=== PATIENT | male | born 1965 | race Caucasian/White ===

== ENCOUNTER → 2018-12-29 | Outpatient (CLI) | payer BC | END | disposition home or self-care (01) | LOC: LABWHC1 16:03 | PROVIDERS: ATTEND Internal Medicine | DX: E11.9 Type 2 diabetes mellitus without complications (principal) | CPT/HCPCS: 36415; 84681 ==

== ENCOUNTER 2021-12-22 16:16 | Emergency (ER) | payer BC ==
[2021-12-22 17:11] VITALS: TEMP 98
[2021-12-22 17:35] LABS: Basophils % (A) 0 %; Eosinophils # (A) 0.3 k/uL (0-0.7); Eosinophils % (A) 4 %; HCT 53.9 % (39.0-53.0); HGB 16.7 gm/dL (13.0-17.5); Lymphocytes # (A) 1.4 k/uL (1.0-4.8); Lymphocytes % (A) 22 %; MCH 26.4 pg (25.0-35.0); MCV 85.3 fL (80.0-100.0); Mean Platelet Volume 7.3; Monocytes # (A) 0.4 k/uL (0-1.0); Monocytes % (A) 7 %; Neutrophils # (A) 4.1 k/uL (1.3-7.7); Neutrophils % (A) 64 %; Platelet Count 207 k/uL (150-450); RBC 6.32 m/uL (4.30-5.90); RDW 13.8 % (11.5-15.5); WBC 6.4 k/uL (3.8-10.6)
[2021-12-22 17:47] LABS: Partial Thromboplastin Time 24.8 sec (22.0-30.0); Prothrombin Time 10.6 sec (9.0-12.0)
[2021-12-22 17:48] LABS: ALT 30 U/L (4-49); AST 31 U/L (17-59); African American GFR (CKD) >90 (>60 ml/min/1.73 sqM); Albumin 4.7 g/dL (3.5-5.0); Alkaline Phosphatase 117 U/L (38-126); Anion Gap 11 mmol/L; Blood Urea Nitrogen 24 mg/dL (9-20); Calcium 9.7 mg/dL (8.4-10.2); Carbon Dioxide 26 mmol/L (22-30); Chloride 100 mmol/L (98-107); Glucose 142 mg/dL (74-99); Non-African American GFR(CKD) 80 (>60 ml/min/1.73 sqM); Potassium 4.3 mmol/L (3.5-5.1); Sodium 137 mmol/L (137-145); Total Bilirubin 0.6 mg/dL (0.2-1.3); Total Protein 7.5 g/dL (6.3-8.2)
--- NOTE | 2021-12-22 19:13 | XR ---
EXAMINATION TYPE: XR chest 2V DATE OF EXAM: 12/22/2021 6:07 PM COMPARISON: None TECHNIQUE: XR chest 2V Frontal and lateral views of the chest. CLINICAL INDICATION:Male, 56 years old with history of chest pain; FINDINGS: Lungs/Pleura: There is no evidence of pleural effusion, focal consolidation, or pneumothorax. Pulmonary vascularity: Unremarkable. Heart/mediastinum: Cardiomediastinal silhouette is unremarkable. Musculoskeletal: No acute osseous pathology. IMPRESSION: No acute cardiopulmonary disease/process.
--- NOTE | 2021-12-22 19:15 | XR ---
EXAMINATION TYPE: XR shoulder complete LT DATE OF EXAM: 12/22/2021 6:50 PM INDICATION: Patient age:Male; 56 years old; Reason for study: left shoulder pain; COMPARISON: None TECHNIQUE: The left shoulder was examined in AP, internally rotated and scapular Y projections. . FINDINGS: Osteophyte formation of the distal clavicle and acromion. No evidence of acute osseous pathology, susy nt dislocation, or soft tissue swelling. The remaining portions of the visualized chest are unremarka ble. IMPRESSION: 1. No acute osseous pathology. 2. Mild left acromioclavicular joint osteoarthrosis.
--- NOTE | 2021-12-22 19:47 | ED ---
General Adult HPI - General Chief complaint: Chest Pain Stated complaint: Needs EKG-Sent by PCP Time Seen by Provider: 12/22/21 18:30 Source: patient, RN notes reviewed, old records reviewed Mode of arrival: ambulatory Limitations: no limitations - History of Present Illness Initial comments: Patient is a 56-year-old male with past medical history remarkable for diabetes, hyperlipidemia presents he was Department complaining of left arm paresthesias. States it is worse with movement of his left shoulder. States it starts at his left anterior superior shoulder and radiates down his left arm. Has been present for 3-4 weeks. Saw his PCP today who instructed him to come to the emergency department for further evaluation and for EKG. Denies any chest pain. Denies any shortness of breath. Denies any abdominal pain, nausea and vomiting. Workup was started in triage. His no other acute complaints at this time. Does have chronic shoulder issues. Presents for further evaluation. - Related Data Allergies Allergy/AdvReac Type Severity Reaction Status Date / Time Penicillins Allergy Rash/Hives Verified 12/22/21 17:09 Review of Systems ROS Statement: Those systems with pertinent positive or pertinent negative responses have been documented in the HPI. Review of Systems: CONST: Denies fever EYES: Denies blurry vision ENT: Denies nasal congestion C/V: Denies Chest pain RESP: Denies shortness of breath GI: Denies abdominal pain : Denies dysuria SKIN: Denies rash. MSK: Denies joint pain. NEURO: Denies headache ROS Other: All systems not noted in ROS Statement are negative. Past Medical History Past Medical History: Diabetes Mellitus, Hyperlipidemia History of Any Multi-Drug Resistant Organisms: None Reported Past Surgical History: No Surgical Hx Reported Past Psychological History: No Psychological Hx Reported Smoking Status: Never smoker Past Alcohol Use History: None Reported Past Drug Use History: None Reported General Exam - General Exam Comments Initial Comments: General: Appears in no acute distress. HEAD: Normal with no signs of head trauma. EYES: PERRLA, EOMI, conjunctiva normal, no discharge. ENT: Hearing grossly intact, normal oropharynx. RESPIRATORY: Clear breath sounds bilaterally. No wheezes, rales, or rhonchi. C/V: Regular rate and rhythm. S1 and S2 auscultated, no edema, peripheral pulses 2+ and intact throughout ABD: Abd is soft, nontender, nondistended EXT: Normal range of motion, no obvious deformity. Paresthesias onset with point pressure applied at the left AC joint. SKIN: No rashes or lesions observed on exposed skin. NEURO: Alert and oriented 4. No focal strength deficits. Subjective paresthesias located in the left arm. Limitations: no limitations Course Vital Signs 12/22/21 12/22/21 12/22/21 17:09 18:48 19:57 Temperature 98 F 98 F Pulse Rate 63 68 66 Respiratory 16 16 18 Rate Blood Pressure 155/91 173/113 137/98 O2 Sat by Pulse 99 96 100 Oximetry Medical Decision Making - Medical Decision Making Based on the patient's presentation and physical exam, patient presents complaining of radiculopathy type paresthesias located in the left upper extremity. There is pinpoint tenderness at the left AC joint. Cardiac work up was obtained in triage, as well as an EKG at the request the PCP. EKG showed no signs of acute ischemia. Troponin was undetectable. Remainder the labs are unremarkable. Vital signs are within normal limits. Chest x-ray revealed no acute cardiopulmonary process. I discussed with the patient at length my concern for possible nerve compression located in the left shoulder. R ecommended a shoulder x-ray in addition to chest x-ray which he accepted. Declines analgesia at this time. Shoulder x-ray shows mild left AC joint osteoarthritis. Discussed the findings with him and his . I believe it is safe for discharge home with follow-up with orthopedics. He was in agreement this plan. Can use [id number] analgesia as needed for pain. May require further imaging such as MRI or ultrasound which we discussed. States he has an orthopedic surgeon that he can follow-up with. Declines referral. I instructed the patient to follow up with their PCP in the next 1-3 days. I explained that the patient should return to the emergency department if they experience any worsening symptoms. Strict return precautions were discussed with the patient. The patient expressed understanding of these instructions. I answered all questions that the patient had. The patient was discharged home in good condition with their prescriptions and follow up information. - Lab Data Result diagrams: 12/22/21 17:18 12/22/21 17:18 Lab Results 12/22/21 12/22/21 12/22/21 Range/Units 17:18 17:18 17:18 WBC 6.4 (3.8-10.6) k/uL RBC 6.32 H (4.30-5.90) m/uL Hgb 16.7 (13.0-17.5) gm/dL Hct 53.9 H (39.0-53.0) % MCV 85.3 (80.0-100.0) fL MCH 26.4 (25.0-35.0) pg MCHC 31.0 (31.0-37.0) g/dL RDW 13.8 (11.5-15.5) % Plt Count 207 (150-450) k/uL MPV 7.3 Neutrophils % 64 % Lymphocytes % 22 % Monocytes % 7 % Eosinophils % 4 % Basophils % 0 % Neutrophils # 4.1 (1.3-7.7) k/uL Lymphocytes # 1.4 (1.0-4.8) k/uL Monocytes # 0.4 (0-1.0) k/uL Eosinophils # 0.3 (0-0.7) k/uL Basophils # 0.0 (0-0.2) k/uL PT 10.6 (9.0-12.0) sec INR 1.0 (<1.2) APTT 24.8 (22.0-30.0) sec Sodium 137 (137-145) mmol/L Potassium 4.3 (3.5-5.1) mmol/L Chloride 100 (98-107) mmol/L Carbon Dioxide 26 (22-30) mmol/L Anion Gap 11 mmol/L BUN 24 H (9-20) mg/dL Creatinine 1.06 (0.66-1.25) mg/dL Est GFR (CKD-EPI)AfAm >90 (>60 ml/min/1.73 sqM) Est GFR (CKD-EPI)NonAf 80 (>60 ml/min/1.73 sqM) Glucose 142 H (74-99) mg/dL Calcium 9.7 (8.4-10.2) mg/dL Total Bilirubin 0.6 (0.2-1.3) mg/dL AST 31 (17-59) U/L ALT 30 (4-49) U/L Alkaline Phosphatase 117 (38-126) U/L Troponin I (0.000-0.034) ng/mL Total Protein 7.5 (6.3-8.2) g/dL Albumin 4.7 (3.5-5.0) g/dL 12/22/21 Range/Units 17:18 WBC (3.8-10.6) k/uL RBC (4.30-5.90) m/uL Hgb (13.0-17.5) gm/dL Hct (39.0-53.0) % MCV (80.0-100.0) fL MCH (25.0-35.0) pg MCHC (31.0-37.0) g/dL RDW (11.5-15.5) % Plt Count (150-450) k/uL MPV Neutrophils % % Lymphocytes % % Monocytes % % Eosinophils % % Basophils % % Neutrophils # (1.3-7.7) k/uL Lymphocytes # (1.0-4.8) k/uL Monocytes # (0-1.0) k/uL Eosinophils # (0-0.7) k/uL Basophils # (0-0.2) k/uL PT (9.0-12.0) sec INR (<1.2) APTT (22.0-30.0) sec Sodium (137-145) mmol/L Potassium (3.5-5.1) mmol/L Chloride (98-107) mmol/L Carbon Dioxide (22-30) mmol/L Anion Gap mmol/L BUN (9-20) mg/dL Creatinine (0.66-1.25) mg/dL Est GFR (CKD-EPI)AfAm (>60 ml/min/1.73 sqM) Est GFR (CKD-EPI)NonAf (>60 ml/min/1.73 sqM) Glucose (74-99) mg/dL Calcium (8.4-10.2) mg/dL Total Bilirubin (0.2-1.3) mg/dL AST (17-59) U/L ALT (4-49) U/L Alkaline Phosphatase (38-126) U/L Troponin I <0.012 (0.000-0.034) ng/mL Total Protein (6.3-8.2) g/dL Albumin (3.5-5.0) g/dL - EKG Data -: EKG Interpreted by Me EKG Comments: 12-lead Electrocardiogram Interpretation Note EKG was reviewed and interpreted by myself. 12-lead ECG performed at 1718 is interpreted by me as revealing normal sinus rhythm at a rate of 61 beats per minute. [place] is normal. AL interval is 185 ms, QRS duration is 106 ms, QTc is 402 ms.. There were no ST or T wave abnormalities to suggest myocardial ischemia or injury. R wave progression across the precordium was satisfactory. By my interpretation this EKG is non-diagnostic for acute ischemia. Disposition Clinical Impression: Arm paresthesia, left, AC joint pain Disposition: HOME SELF-CARE Condition: Good Instructions (If sedation given, give patient instructions): Paresthesia (ED) Is patient prescribed a controlled substance at d/c from ED?: No Referrals: Aga Vega MD [Primary Care Provider] - 1-2 days Time of Disposition: 19:30
[2021-12-22 19:58] VITALS: BP 137/98; PULSE 66; RESP 18
== END 2021-12-22 19:58 | disposition home or self-care (01) ==
LOC: EC 16:16
DX: R20.2 Paresthesia of skin (principal); M25.512 Pain in left shoulder; E11.9 Type 2 diabetes mellitus without complications; E78.5 Hyperlipidemia, unspecified; Z88.0 Allergy status to penicillin
CPT/HCPCS: 36415; 71046; 80053; 84484; 85025; 85610; 85730; 93005; 99284

== ENCOUNTER → 2024-03-22 | Outpatient (CLI) | payer BC ==
--- NOTE | 2024-03-22 20:35 | US ---
EXAMINATION TYPE: US carotid duplex BILAT DATE OF EXAM: 03/22/2024 COMPARISON: NONE CLINICAL INDICATION: Male, 59 years old with history of R42 DIZZINESS AND GIDDINESS; Dizziness for 2 weeks Additional History: R42* Dizziness TECHNIQUE: Grayscale, color Doppler and spectral Doppler evaluation of the bilateral carotid systems and vertebral arteries. Indirect Doppler criteria was utilized. FINDINGS: EXAM MEASUREMENTS: RIGHT: Peak Systolic Velocity (PSV) cm/sec ----- Right CCA: 95.5 ----- Right ICA: 81.2 ----- Right ECA: 100 ICA/CCA ratio: 0.85 RIGHT: End Diastole cm/sec ----- Right CCA: 20.1 ----- Right ICA: 32.9 ----- Right ECA: 11.5 LEFT: Peak Systolic Velocity (PSV) cm/sec ----- Left CCA: 90.1 ----- Left ICA: 76.2 ----- Left ECA: 79.9 ICA/CCA ratio: 0.85 LEFT: End Diastole cm/sec ----- Left CCA: 26.4 ----- Left ICA: 31.2 ----- Left ECA: 9.6 VERTEBRALS (direction of flow): Right Vertebral: Antegrade Left Vertebral: Antegrade Rhythm: Normal ANGIOGRAPHY TECHNOLOGIST NOTES: Minimal plaque bilateral bifurcations. No evidence of increased velocities Color Doppler imaging shows patency with blood flow throughout the carotid artery. Spectral waveforms are within normal limits. IMPRESSION: 1. Mild atheromatous plaquing without significant flow-limiting stenosis. Criteria for Assigning % of Stenosis / Diameter reduction (Estimation based on the indirect measurements of the internal carotid artery velocities (ICA PSV). 1. Normal (no stenosis)=ICA PSV < 125 cm/s: ratio < 2.0: ICA EDV<40 cm/s. 2. Less than 50% stenosis=ICA PSV < 125 cm/s: ratio < 2.0: ICA EDV<40 cm/s. 3. 50 to 69% stenosis=ICA PSV of 125 to 230 cm/s: ration 2.0 ? 4.0: ICA EDV 40-100 cm/s. 4. Greater than 70% stenosis to near occlusion= ICA PSV > 230 cm/s: ratio > 4.0: ICA EDV > 100 cm/s. 5. Near occlusion= ICA PSV velocities may be low or undetectable: variable ratio and ICA EDV. 6. Total occlusion=unable to detect flow. [facility], , 03/22/2024 8:33 PM
== END | disposition home or self-care (01) ==
LOC: RADUSWWP 06:50
PROVIDERS: ATTEND Internal Medicine
DX: I70.90 Unspecified atherosclerosis (principal); R42 Dizziness and giddiness
CPT/HCPCS: 93880

== ENCOUNTER 2024-05-01 18:24 | Observation (INO) | payer BC ==
[2024-05-01] MEDS: FAMOTIDINE 20 MG/2 ML VIAL IV STA (20:00)
[2024-05-01] MEDS: KETOROLAC 15 MG/ML 1 ML VIAL IVP STA (20:00)
[2024-05-01] MEDS: SODIUM CHLORIDE 0.9% 1,000 ML IV STA (20:01)
[2024-05-01 20:06] LABS: Basophils % (A) 0 %; Eosinophils # (A) 0.1 k/uL (0-0.7); Eosinophils % (A) 2 %; HCT 50.5 % (39.0-53.0); Lymphocytes # (A) 1.5 k/uL (1.0-4.8); Lymphocytes % (A) 19 %; MCH 26.8 pg (25.0-35.0); MCHC 31.7 g/dL (31.0-37.0); MCV 84.7 fL (80.0-100.0); Mean Platelet Volume 6.8; Monocytes # (A) 0.4 k/uL (0-1.0); Monocytes % (A) 5 %; Neutrophils # (A) 5.5 k/uL (1.3-7.7); Neutrophils % (A) 72 %; Platelet Count 228 k/uL (150-450); RBC 5.96 m/uL (4.30-5.90); WBC 7.6 k/uL (3.8-10.6)
[2024-05-01 20:06] LABS: Appearance,Urine Clear (Clear); Bilirubin,Urine Negative (Negative); Blood,Urine Negative (Negative); Color,Urine Colorless; Glucose,Urine (UA) 4+ (Negative); Ketones,Urine Negative (Negative); Leukocyte Esterase,Urine Negative (Negative); Nitrite,Urine Negative (Negative); Protein,Urine Negative (Negative); Specific Gravity,Urine 1.038 (1.001-1.035); Urobilinogen,Urine <2.0 mg/dL (<2.0)
[2024-05-01 20:38] LABS: ALT 29 U/L (4-49); AST 27 U/L (17-59); African American GFR (CKD) >90 (>60 ml/min/1.73 sqM); Albumin 4.7 g/dL (3.5-5.0); Alkaline Phosphatase 94 U/L (38-126); Amylase 71 U/L (30-110); Anion Gap 6 mmol/L; Blood Urea Nitrogen 21 mg/dL (9-20); Carbon Dioxide 31 mmol/L (22-30); Chloride 101 mmol/L (98-107); Glucose 149 mg/dL (74-99); Lipase 172 U/L (23-300); Non-African American GFR(CKD) >90 (>60 ml/min/1.73 sqM); Potassium 4.2 mmol/L (3.5-5.1); Sodium 138 mmol/L (137-145); Total Bilirubin 0.6 mg/dL (0.2-1.3)
--- NOTE | 2024-05-01 21:50 | CT ---
EXAMINATION TYPE: CT abdomen pelvis w con DATE OF EXAM: 05/01/2024 9:40 PM COMPARISON: None available. CLINICAL INDICATION: Male, 59 years old with history of abdominal pain; Lower abdomen pain [id number]. Wit hin the last day it moved to RT side and became more significant. TECHNIQUE: Axial CT abdomen pelvis w con;Sagittal and coronal reformats were created on a separate w orkstation. Contrast used:100 ml mL of Isovue 300 with IV Contrast, (none if empty) Oral contrast used: without Oral Contrast (none if empty) CT DLP: 816 mGycm, Automated exposure control for dose reduction was used. FINDINGS: LOWER CHEST: Unremarkable ABDOMEN LIVER: Unremarkable GALLBLADDER AND BILE DUCTS: Unremarkable. PANCREAS: Unremarkable. SPLEEN: Unremarkable. ADRENAL GLANDS: Unremarkable. KIDNEYS AND URETERS: No evidence of hydronephrosis or renal calculus. The ureters are unremarkable. PELVIS BLADDER: No evidence for wall thickening or mass given limitations of exam. REPRODUCTIVE: Unremarkable. ABDOMEN & PELVIS STOMACH AND BOWEL: Stomach and duodenum are unremarkable. Scattered diverticula are noted throughout the colon. No evidence of bowel obstruction. Appendix is gas-filled proximally and along the distal t ip although the midportion is mildly dilated measuring 7 mm in diameter. No associated adjacent mesen teric inflammation. PERITONEUM/RETROPERITONEUM: No evidence of pneumoperitoneum or free fluid. VASCULATURE: No evidence of aortic aneurysm. MUSCULOSKELETAL: No acute osseous abnormalities LYMPH NODES: No gross evidence for lymphadenopathy. SOFT TISSUE/ABDOMINAL WALL: Unremarkable IMPRESSION: No acute abnormality in the abdomen/pelvis. [facility], , 05/01/2024 9:47 PM
[2024-05-01] MEDS ORDERED: NALOXONE 0.4 MG/ML 1 ML VIAL IV PRN (22:35)
[2024-05-01] MEDS ORDERED: MORPHINE SULFATE 4 MG/ML SYRINGE IV PRN (22:35)
--- NOTE | 2024-05-01 22:40 | ED ---
Abdominal Pain HPI - General Chief Complaint: Abdominal Pain Stated Complaint: R side/abd pain Time Seen by Provider: 05/01/24 19:06 Source: patient Mode of arrival: ambulatory Limitations: no limitations - History of Present Illness Initial Comments: 59-year-old male presenting with chief complaint of abdominal pain. Patient reports that a few weeks ago he had sudden onset sharp and burning periumbilical pain with radiation to the right lower quadrant. States that this was a nagging pain throughout the day that did not stop him from doing his ADLs. Eventually the pain went away. The pain is since returned and worsened over the last night. Is becoming progressively more difficult to ignore throughout the day. Pain is improved with laying down and worse when he is up and moving. No nausea or vomiting. Some constipation, no diarrhea. No fever. - Related Data Home Medications Medication Instructions Recorded Confirmed Empagliflozin [Jardiance] 25 mg PO DAILY 05/01/24 05/01/24 Evolocumab [Repatha Sureclick] 140 mg SQ Q14D 05/01/24 05/01/24 Rosuvastatin Calcium [Crestor] 40 mg PO DAILY 05/01/24 05/01/24 Semaglutide [Rybelsus] 14 mg PO DAILY 05/01/24 05/01/24 lisinopriL [Zestril] 5 mg PO DAILY 05/01/24 05/01/24 Allergies Allergy/AdvReac Type Severity Reaction Status Date / Time Penicillins Allergy Rash/Hives Verified 05/01/24 20:47 Review of Systems ROS Statement: Those systems with pertinent positive or pertinent negative responses have been documented in the HPI. ROS Other: All systems not noted in ROS Statement are negative. Past Medical History Past Medical History: Diabetes Mellitus, Hyperlipidemia History of Any Multi-Drug Resistant Organisms: None Reported Past Surgical History: No Surgical Hx Reported Past Psychological History: No Psychological Hx Reported Smoking Status: Never smoker Past Alcohol Use History: None Reported Past Drug Use History: None Reported General Exam Limitations: no limitations General appearance: alert, in no apparent distress Head exam: Present: atraumatic, normocephalic, normal inspection Eye exam: Present: normal appearance, EOMI Neck exam: Present: normal inspection. Absent: meningismus Respiratory exam: Present: normal lung sounds bilaterally. Absent: respiratory distress, wheezes, rales, rhonchi, stridor Cardiovascular Exam: Present: regular rate, normal rhythm, normal heart sounds. Absent: systolic murmur, diastolic murmur, rubs, gallop, clicks GI/Abdominal exam: Present: soft. Absent: distended, tenderness, guarding, rebound, rigid Neurological exam: Present: alert, oriented X3 Psychiatric exam: Present: normal affect, normal mood Skin exam: Present: warm, dry Course Vital Signs 05/01/24 05/01/24 18:56 20:51 Temperature 98.4 F Pulse Rate 78 64 Respiratory 18 16 Rate Blood Pressure 136/75 148/84 O2 Sat by Pulse 99 98 Oximetry Medical Decision Making - Medical Decision Making Was pt. sent in by a medical professional or institution (, PA, BUSINESS DEPARTMENT CHAIR, urgent care, hospital, or long-term...) When possible be specific @ -No Did you speak to anyone other than the patient for history (EMS, parent, family, police, friend...)? What history was obtained from this source @ - Did you review nursing and triage notes (agree or disagree)? Why? @ -I reviewed and agree with nursing and triage notes Were old charts reviewed (outside hosp., previous admission, EMS record, old EKG, old radiological studies, urgent care reports/EKG's, long-term records)? Report findings @ -No old charts were reviewed Differential Diagnosis (chest pain, altered mental status, abdominal pain women, abdominal pain men, vaginal bleeding, weakness, fever, dyspnea, syncope, headache, dizziness, GI bleed, back pain, seizure, CVA, palpatations, mental health, musculoskeletal)? @ -MDM Differential Abdominal Pain Men: Appendicitis, cholecystitis, diverticulosis, ischemic bowel, pancreatitis, hepatitis, UTI, gastroenteritis, AAA, incarcerated hernia, bowel obstruction, constipation, inflammatory bowel, hepatitis, peptic ulcer disease, splenic infarction, perforated viscus, testicular torsion... This is not meant to be an all-inclusive list EKG interpreted by me (3pts min.). @ -As above X-rays interpreted by me (1pt min.). @ -None done CT interpreted by me (1pt min.). @ -CT shows appendix is gas-filled proximally and along the distal tip although the midportion is mildly dilated measuring 7 mm in diameter. No associated adjacent mesenteric inflammation. U/S interpreted by me (1pt. min.). @ -None done What testing was considered but not performed or refused? (CT, X-rays, U/S, labs)? Why? @ -None What meds were considered but not given or refused? Why? @ -None Did you discuss the management of the patient with other professionals (professionals i.e. , PA, BUSINESS DEPARTMENT CHAIR, lab, RT, psych nurse, social media coordinator, roller staker, teacher, training and development officer, pillowcase folder)? Give summary @ -I spoke with general surgeon on-call Dr. Ocampo. He advised starting the patient on Flagyl and Rocephin, IV fluids, and making him n.p.o. He will reevaluate the patient in the morning Was smoking cessation discussed for >3mins.? @ -No Was critical care preformed (if so, how long)? @ -No Were there social determinants of health that impacted care today? How? (Homelessness, low income, unemployed, alcoholism, drug addiction, transportation, low edu. Level, literacy, decrease access to med. care, senior care, rehab)? @ -No Was there de-escalation of care discussed even if they declined (Discuss DNR or withdrawal of care, Hospice)? DNR status @ -No What co-morbidities impacted this encounter? (DM, HTN, Smoking, COPD, CAD, Cancer, CVA, ARF, Chemo, Hep., AIDS, mental health diagnosis, sleep apnea, morbid obesity)? @ -None Was patient admitted / discharged? Hospital course, mention meds given and route, prescriptions, significant lab abnormalities, going to OR and other pertinent info. @ -59-year-old male presenting with chief complaint of right lower quadrant pain. History and physical examination are conducted. No leukocytosis or anemia. No infection seen on UA. CT states no acute process. The appendix is gas-filled and mildly dilated. Given the patient's pain I discussed these results with surgeon on-call Dr. Ocampo. Dr. Ocampo advised starting Rocephin and Flagyl, IV fluids, making the patient n.p.o. He will then reevaluate the patient in the morning and determine the potential need for appendectomy. Patient is educated on today's findings and plan. He is agreeable with this plan. I discussed this case with my attending Dr. Merida. Undiagnosed new problem with uncertain prognosis? @ -No Drug Therapy requiring intensive monitoring for toxicity (Heparin, Nitro, Insulin, Cardizem)? @ -No Were any procedures done? @ -No Diagnosis/symptom? @ -Abdominal pain, rule out appendicitis Acute, or Chronic, or Acute on Chronic? @ -Acute Uncomplicated (without systemic symptoms) or Complicated (systemic symptoms)? @ -complicated Side effects of treatment? @ -No Exacerbation, Progression, or Severe Exacerbation? @ -No Poses a threat to life or bodily function? How? (Chest pain, [place], [place], pneumonia, PE, COPD, DKA, ARF, appy, cholecystitis, CVA, Diverticulitis, Homicidal, Suicidal, threat to staff... and all critical care pts) @ -Potential - Lab Data Result diagrams: 05/01/24 19:38 05/01/24 19:38 Lab Results 05/01/24 05/01/24 05/01/24 Range/Units 19:38 19:38 19:38 WBC 7.6 (3.8-10.6) k/uL RBC 5.96 H (4.30-5.90) m/uL Hgb 16.0 (13.0-17.5) gm/dL Hct 50.5 (39.0-53.0) % MCV 84.7 (80.0-100.0) fL MCH 26.8 (25.0-35.0) pg MCHC 31.7 (31.0-37.0) g/dL RDW 14.0 (11.5-15.5) % Plt Count 228 (150-450) k/uL MPV 6.8 Neutrophils % 72 % Lymphocytes % 19 % Monocytes % 5 % Eosinophils % 2 % Basophils % 0 % Neutrophils # 5.5 (1.3-7.7) k/uL Lymphocytes # 1.5 (1.0-4.8) k/uL Monocytes # 0.4 (0-1.0) k/uL Eosinophils # 0.1 (0-0.7) k/uL Basophils # 0.0 (0-0.2) k/uL Sodium 138 (137-145) mmol/L Potassium 4.2 (3.5-5.1) mmol/L Chloride 101 (98-107) mmol/L Carbon Dioxide 31 H (22-30) mmol/L Anion Gap 6 mmol/L BUN 21 H (9-20) mg/dL Creatinine 0.92 (0.66-1.25) mg/dL Est GFR (CKD-EPI)AfAm >90 (>60 ml/min/1.73 sqM) Est GFR (CKD-EPI)NonAf >90 (>60 ml/min/1.73 sqM) Glucose 149 H (74-99) mg/dL Plasma Lactic Acid Maxime 1.1 (0.7-2.0) mmol/L Calcium 10.0 (8.4-10.2) mg/dL Total Bilirubin 0.6 (0.2-1.3) mg/dL AST 27 (17-59) U/L ALT 29 (4-49) U/L Alkaline Phosphatase 94 (38-126) U/L Total Protein 7.0 (6.3-8.2) g/dL Albumin 4.7 (3.5-5.0) g/dL Amylase 71 (30-110) U/L Lipase 172 (23-300) U/L Urine Color Urine Appearance (Clear) Urine pH (5.0-8.0) Ur Specific [place] (1.001-1.035) Urine Protein (Negative) Urine Glucose (UA) (Negative) Urine Ketones (Negative) Urine Blood (Negative) Urine Nitrite (Negative) Urine Bilirubin (Negative) Urine Urobilinogen (<2.0) mg/dL Ur Leukocyte Esterase (Negative) 05/01/24 Range/Units 19:50 WBC (3.8-10.6) k/uL RBC (4.30-5.90) m/uL Hgb (13.0-17.5) gm/dL Hct (39.0-53.0) % MCV (80.0-100.0) fL MCH (25.0-35.0) pg MCHC (31.0-37.0) g/dL RDW (11.5-15.5) % Plt Count (150-450) k/uL MPV Neutrophils % % Lymphocytes % % Monocytes % % Eosinophils % % Basophils % % Neutrophils # (1.3-7.7) k/uL Lymphocytes # (1.0-4.8) k/uL Monocytes # (0-1.0) k/uL Eosinophils # (0-0.7) k/uL Basophils # (0-0.2) k/uL Sodium (137-145) mmol/L Potassium (3.5-5.1) mmol/L Chloride (98-107) mmol/L Carbon Dioxide (22-30) mmol/L Anion Gap mmol/L BUN (9-20) mg/dL Creatinine (0.66-1.25) mg/dL Est GFR (CKD-EPI)AfAm (>60 ml/min/1.73 sqM) Est GFR (CKD-EPI)NonAf (>60 ml/min/1.73 sqM) Glucose (74-99) mg/dL Plasma Lactic Acid Maxime (0.7-2.0) mmol/L Calcium (8.4-10.2) mg/dL Total Bilirubin (0.2-1.3) mg/dL AST (17-59) U/L ALT (4-49) U/L Alkaline Phosphatase (38-126) U/L Total Protein (6.3-8.2) g/dL Albumin (3.5-5.0) g/dL Amylase (30-110) U/L Lipase (23-300) U/L Urine Color Colorless Urine Appearance Clear (Clear) Urine pH 6.0 (5.0-8.0) Ur Specific [place] 1.038 H (1.001-1.035) Urine Protein Negative (Negative) Urine Glucose (UA) 4+ H (Negative) Urine Ketones Negative (Negative) Urine Blood Negative (Negative) Urine Nitrite Negative (Negative) Urine Bilirubin Negative (Negative) Urine Urobilinogen <2.0 (<2.0) mg/dL Ur Leukocyte Esterase Negative (Negative) Disposition Clinical Impression: Abdominal pain Disposition: ADMITTED IP TO THIS HOSP Condition: Fair Time of Disposition: 22:40
[2024-05-01] MEDS: SODIUM CHLORIDE 0.9% 1,000 ML IV SCH (22:53)
[2024-05-01] MEDS: metroNIDAZOLE-NS PMX 500 MG in SALINE 1 100ML.BAG IVPB STA (22:54)
[2024-05-02] MEDS: metroNIDAZOLE-NS PMX 500 MG in SALINE 1 100ML.BAG IVPB SCH (08:41)
[2024-05-02] MEDS: ONDANSETRON 4 MG/2 ML VIAL IVP PRN (12:26)
[2024-05-02] MEDS: DEXAMETHASONE SOD PHOSPHATE 4 MG/ML 1 ML VIAL IVP STA (12:27)
--- NOTE | 2024-05-02 12:28 | P.GSHP ---
History of Present Illness H&P Date: 05/02/24 CHIEF COMPLAINT: Abdominal pain HISTORY OF PRESENT ILLNESS: This is a 59-year-old male who presents the hospital with complaints of abdominal pain. Patient reported his pain started about 3 days ago. Pain initially started in the umbilicus region and went down to the right lower quadrant. He reports the pain is about a 3 out of 10. Patient had a CAT scan abdomen completed that reported no acute abnormality in the abdomen and pelvis. But did note appendix was mildly dilated and gas-filled. Patient denies any prior abdominal surgeries. PAST MEDICAL HISTORY: See below PAST SURGICAL HISTORY: See below MEDICATIONS: See below ALLERGIES: See below SOCIAL HISTORY: No illicit drug use. REVIEW OF SYSTEMS: CONSTITUTIONAL: Denies fever or chills. HEENT: Denies blurred vision, vision changes, or eye pain. Denies hemoptysis CARDIOVASCULAR: Denies chest pain or pressure. RESPIRATORY: No shortness of breath. GASTROINTESTINAL: See HPI for pertinent findings HEMATOLOGIC: Denies bleeding disorders. GENITOURINARY: Denies any blood in urine or increased urinary frequency. SKIN: Denies pruitis. Denies rash. PHYSICAL EXAM: VITAL SIGNS: Reviewed GENERAL: Well-developed in no acute distress. HEENT: No sclera icterus. Extraocular movements grossly intact. Moist buccal mucosa. Head is atraumatic, normocephalic. No nasal drainage. ABDOMEN: Soft. Nondistended. Tenderness with palpation to right lower quadrant. NEUROLOGIC: Alert and oriented. Cranial nerves II through XII grossly intact. LABORATORY DATA: WBC 7.6 Hgb 16 platelets 228 Sodium 138 potassium 4.2 creatinine 0.92 IMAGING: CT scan abdomen pelvis reports no acute abnormality in the abdomen and pelvis. Does report appendix mildly dilated 7 mm and gas-filled. ASSESSMENT: 1. Acute appendicitis PLAN: -Patient scheduled for laparoscopic appendectomy today with Dr. Alvarez -Keep patient n.p.o. -Continue antibiotics -Continue IV fluids -Continue pain management Physician Nurse Staff Industrial note has been reviewed by physician. Signing provider agrees with the documented findings, assessment, and plan of care. Attestation Patient seen and examined at bedside. Presented with chief complaint of abdominal pain starting at the umbilicus and migrating to the right lower quadrant. With this pain presentation he presented to the emergency department. He is found to have a mildly dilated appendix with continued right lower quadrant pain. Based on these findings, patient was offered antibiotic route of treatment with concern for early appendicitis and possibility of laparoscopic appendectomy. Patient is concerned of worsening of the appendicitis and has opted for appendectomy. This is reasonable based on patient's current clinical presentation and dilated appendix finding. We will plan for laparoscopic appendectomy. Risks, benefits and alternatives were provided. All questions answered. Lonny Alvarez DO Past Medical History Past Medical History: Diabetes Mellitus, Hyperlipidemia History of Any Multi-Drug Resistant Organisms: None Reported Past Surgical History: No Surgical Hx Reported Past Psychological History: No Psychological Hx Reported Smoking Status: Never smoker Past Alcohol Use History: None Reported Past Drug Use History: None Reported Medications and Allergies Home Medications Medication Instructions Recorded Confirmed Type Empagliflozin [Jardiance] 25 mg PO DAILY 05/01/24 05/01/24 History Evolocumab [Repatha Sureclick] 140 mg SQ Q14D 05/01/24 05/01/24 History Rosuvastatin Calcium [Crestor] 40 mg PO DAILY 05/01/24 05/01/24 History Semaglutide [Rybelsus] 14 mg PO DAILY 05/01/24 05/01/24 History lisinopriL [Zestril] 5 mg PO DAILY 05/01/24 05/01/24 History Allergies Allergy/AdvReac Type Severity Reaction Status Date / Time Penicillins Allergy Rash/Hives Verified 05/02/24 12:16 Surgical - Exam Osteopathic Statement: *. No significant issues noted on an osteopathic structural exam other than those noted in the History and Physical/Consult. Vital Signs Temp Pulse Resp BP Pulse Ox 98.4 F 78 18 136/75 99 05/01/24 18:56 05/01/24 18:56 05/01/24 18:56 05/01/24 18:56 05/01/24 18:56 Results - Labs 05/01/24 19:38 05/01/24 19:38 Abnormal Lab Results - Last 24 Hours (Table) 05/01/24 05/01/24 05/01/24 Range/Units 19:38 19:38 19:50 RBC 5.96 H (4.30-5.90) m/uL Carbon Dioxide 31 H (22-30) mmol/L BUN 21 H (9-20) mg/dL Glucose 149 H (74-99) mg/dL Ur Specific [place] 1.038 H (1.001-1.035) Urine Glucose (UA) 4+ H (Negative) Diabetes panel 05/01/24 Range/Units 19:38 Sodium 138 (137-145) mmol/L Potassium 4.2 (3.5-5.1) mmol/L Chloride 101 (98-107) mmol/L Carbon Dioxide 31 H (22-30) mmol/L BUN 21 H (9-20) mg/dL Creatinine 0.92 (0.66-1.25) mg/dL Glucose 149 H (74-99) mg/dL Calcium 10.0 (8.4-10.2) mg/dL AST 27 (17-59) U/L ALT 29 (4-49) U/L Alkaline Phosphatase 94 (38-126) U/L Total Protein 7.0 (6.3-8.2) g/dL Albumin 4.7 (3.5-5.0) g/dL Calcium panel 05/01/24 Range/Units 19:38 Calcium 10.0 (8.4-10.2) mg/dL Albumin 4.7 (3.5-5.0) g/dL Pituitary panel 05/01/24 Range/Units 19:38 Sodium 138 (137-145) mmol/L Potassium 4.2 (3.5-5.1) mmol/L Chloride 101 (98-107) mmol/L Carbon Dioxide 31 H (22-30) mmol/L BUN 21 H (9-20) mg/dL Creatinine 0.92 (0.66-1.25) mg/dL Glucose 149 H (74-99) mg/dL Calcium 10.0 (8.4-10.2) mg/dL Adrenal panel 05/01/24 Range/Units 19:38 Sodium 138 (137-145) mmol/L Potassium 4.2 (3.5-5.1) mmol/L Chloride 101 (98-107) mmol/L Carbon Dioxide 31 H (22-30) mmol/L BUN 21 H (9-20) mg/dL Creatinine 0.92 (0.66-1.25) mg/dL Glucose 149 H (74-99) mg/dL Calcium 10.0 (8.4-10.2) mg/dL Total Bilirubin 0.6 (0.2-1.3) mg/dL AST 27 (17-59) U/L ALT 29 (4-49) U/L Alkaline Phosphatase 94 (38-126) U/L Total Protein 7.0 (6.3-8.2) g/dL Albumin 4.7 (3.5-5.0) g/dL
[2024-05-02] MEDS: IV FLUID CONTINUATION 1,000 ML IV ONE (12:29)
[2024-05-02 12:37] LABS: Glucose,Whole Blood 85 mg/dL (70-110)
[2024-05-02] MEDS ORDERED: NEOSTIGMINE 1 MG/ML 10 ML VIAL ONE (13:56)
[2024-05-02] MEDS ORDERED: fentaNYL (PF) 50 MCG/ML 2 ML AMP ONE (13:56)
[2024-05-02] MEDS ORDERED: PROPOFOL 10 MG/ML 20 ML VIAL IV ONE (13:56)
[2024-05-02] MEDS ORDERED: KETOROLAC 15 MG/ML 1 ML VIAL ONE (13:56)
[2024-05-02] MEDS ORDERED: MIDAZOLAM 2 MG/2 ML VIAL ONE (13:56)
[2024-05-02] MEDS ORDERED: ROCURONIUM 10 MG/ML (5 ML VIAL) IV ONE (13:56)
[2024-05-02] MEDS ORDERED: SUCCINYLCHOLINE CHLORIDE 200 MG/10 ML VIAL IV ONE (13:56)
[2024-05-02] MEDS ORDERED: LIDOCAINE 1% INJ 10MG/ML (20 ML MDV) ONE (13:56)
[2024-05-02] MEDS ORDERED: HEPARIN SODIUM,PORCINE 5,000 UNIT/ML 1 ML VIAL ONE (13:56)
[2024-05-02] MEDS ORDERED: GLYCOPYRROLATE 0.2 MG/ML 2 ML VIAL ONE (13:56)
[2024-05-02] MEDS ORDERED: DEXTROSE 50% SYRINGE 50 ML IVP PRN ×2 (14:13)
[2024-05-02] MEDS: LIDOCAINE 1%-EPI 1:100,000 20 ML VIAL SQ ONE ×2 (14:16)
[2024-05-02] MEDS: SODIUM CHLORIDE 0.9% 1,000 ML IV ONE (14:31)
--- NOTE | 2024-05-02 14:45 | P.OP ---
Date of Procedure: 05/02/24 Preoperative Diagnosis: Appendicitis Postoperative Diagnosis: Appendicitis Procedure(s) Performed: Laparoscopic appendectomy Anesthesia: WALTER Surgeon: Lonny Alvarez Pathology: other (Appendix) Condition: stable Disposition: same day Indications for Procedure: 59-year-old male presented to the emergency department with complaint of right lower quadrant abdominal pain. CT confirmed dilated appendix. Due to the continued pain and concern for early appendicitis, patient was offered antibiotic versus surgical management. He has opted for surgical management and we will plan for laparoscopic appendectomy. Risks, benefits and alternatives were provided. All questions answered. Operative Findings: Dilated and injected appendix Description of Procedure: Patient s was brought to the operating suite and placed in supine position on the operating table. Sedation was provided by anesthesia and the patient underwent endotracheal intubation. The patient was then prepped and draped in regular sterile fashion. A supraumbilical incision was made and dissection was carried to the fascia. The fascia was incised and a 12 mm trocar was placed. Pneumoperitoneum was achieved. Additional 5 mm ports were placed in the suprapubic and left lower quadrant. The patient was then positioned appropriately and on examination of the cecum, appendix was clearly visualized. Patient was noted to have right sided adhesions from the colon to the abdominal wall. Based on visualization of the appendix these adhesions did not need to be taken down. Appendix was elevated and base of the appendix was clearly identified. A window was created between the appendix and the mesoappendix and LigaSure device was used to ligate the mesoappendix. At this point, the base of the appendix was noted to be freed and stapler device was fired across the base of the appendix. Appendix was then placed in an Endo Catch bag and removed from the abdomen from the supraumbilical incision site. On examination of the area, hemostasis was noted to be maintained. The supraumbilical fascial incision site was closed with 0 Vicryl suture under direct visualization using Jorge-Min device. Pneumoperitoneum was relieved and all ports removed from the abdomen. All incision sites were closed with 4-0 Vicryl subcuticular suture. Sterile dressing was applied. The patient was awakened in the operating suite and taken to postanesthesia care unit in stable condition.
[2024-05-02 14:48] LABS: Glucose,Whole Blood 91 mg/dL (70-110)
[2024-05-02 17:23] LABS: Glucose,Whole Blood 181 mg/dL (70-110)
[2024-05-02] MEDS: INSULIN ASPART (NovoLOG) 100 UNIT/ML VIAL SQ SCH (17:33)
[2024-05-02 20:33] LABS: Glucose,Whole Blood 225 mg/dL (70-110)
[2024-05-02] MEDS: KETOROLAC 15 MG/ML 1 ML VIAL IVP PRN (20:50)
--- NOTE | 2024-05-02 22:01 | CONS ---
CONSULTATION REASON FOR CONSULTATION: Advice regarding diabetes mellitus and other medical issues, requested by Surgery. HISTORY OF PRESENT ILLNESS: This is a 59-year-old gentleman with a past medical history of hyperlipidemia, diabetes mellitus type 2, being followed by Dr. Vega in the outpatient setting, was complaining of abdominal pain on and off for the last 1-1/2 months. The patient had a CT scan of abdomen, which did not show any acute abnormality. The patient is slated for laparoscopic appendectomy today. No chest pain. No palpitation. OBJECTIVE: VITAL SIGNS: Pulse is 62, blood pressure 131/74, respirations 16. CHEST: Clear to auscultation. CARDIOVASCULAR: S1, S2. ABDOMEN: Soft. Mild diffuse tenderness. No guarding. No rigidity. LABORATORY DATA: Noted. ASSESSMENT: 1. Acute on chronic appendicitis. 2. Diabetes mellitus, type 2. 3. Hyperlipidemia. RECOMMENDATIONS AND DISCUSSION: This is a 59-year-old gentleman presented with multiple medical issues. The patient is started on broad-spectrum IV antibiotics. I would recommend to continue the current medications, continue symptomatic treatment. Otherwise, I would also recommend monitor blood sugars closely. Recommend close followup with Dr. Vega after discharge. MMODL / IJN: [id number] /
[2024-05-03 02:09] VITALS: RESP 16; TEMP 98.4
[2024-05-03 05:55] LABS: Glucose,Whole Blood 127 mg/dL (70-110)
[2024-05-03] MEDS: DAPAGLIFLOZIN PROPANEDIOL 10 MG TABLET PO SCH (08:15)
[2024-05-03] MEDS: lisinopriL 5 MG TAB PO SCH (08:15)
[2024-05-03] MEDS ORDERED: HYDROcodone/APAP 5-325MG 1 EACH TAB PO PRN (08:30)
[2024-05-03 08:54] LABS: Basophils # (A) 0.02 X 10*3/uL (0.00-0.10); Basophils % (A) 0.2 %; Eosinophils # (A) 0.03 X 10*3/uL (0.04-0.35); Eosinophils % (A) 0.3 %; HGB 13.4 g/dL (13.0-17.0); Lymphocytes # (A) 1.05 X 10*3/uL (0.90-5.00); Lymphocytes % (A) 9.8 %; MCH 25.8 pg (27.0-32.0); MCHC 29.8 g/dL (32.0-37.0); MCV 86.7 FL (80.0-97.0); Mean Platelet Volume 10.4 FL (9.5-12.2); Monocytes # (A) 0.67 X 10*3/uL (0.20-1.00); Monocytes % (A) 6.3 %; NRBC Per 100 WBC 0 X 10*3/uL (0.00-0.01); Neutrophils # (A) 8.92 X 10*3/uL (1.80-7.70); Neutrophils % (A) 83.1 %; Platelet Count 215 X 10*3/uL (140-440); RBC 5.19 X 10*6/uL (4.40-5.60); RDW 14.7 % (11.5-14.5); WBC 10.72 X 10*3/uL (4.50-10.00)
[2024-05-03 09:22] LABS: ALT 22 U/L (10-49); AST 18 U/L (14-35); Albumin 3.4 g/dL (3.8-4.9); Albumin/Globulin Ratio 2.27 Ratio (1.60-3.17); Alkaline Phosphatase 66 U/L (41-126); BUN/Creat Ratio 25.12 Ratio (12.00-20.00); Blood Urea Nitrogen 20.1 mg/dL (9.0-27.0); Calcium 8.7 mg/dL (8.7-10.3); Carbon Dioxide 23.7 mmol/L (21.6-31.8); Chloride 108 mmol/L (96-109); Globulin 1.5 g/dL (1.6-3.3); Glucose 129 mg/dL (70-110); Potassium 4.3 mmol/L (3.5-5.5); Sodium 141 mmol/L (135-145); Total Bilirubin 0.4 mg/dL (0.3-1.2); Total Protein 4.9 g/dL (6.2-8.2)
[2024-05-03 11:15] VITALS: BP 132/73; PULSE 60
--- NOTE | 2024-05-03 12:14 | P.DS ---
Providers Date of admission: 05/01/24 23:44 Expected date of discharge: 05/03/24 Attending physician: Michael Ocampo DO Consults: 05/02/24 11:21 Consult Physician Routine Consulting Provider: Tracie Hall Consult Reason/Comments: medical management Do you want consulting provider notified?: Yes Primary care physician: Aga Vega Hospital Course: Discharge diagnosis 1. Acute appendicitis Hospital course This is a 59-year-old male who presents the hospital with complaints of abdominal pain. Patient reported his pain started about 3 days ago. Pain initially started in the umbilicus region and went down to the right lower quadrant. Patient had a CAT scan abdomen completed that reported no acute abnormality in the abdomen and pelvis. But did note appendix was mildly dilated and gas-filled. Patient admitted for acute appendicitis. Patient is status post laparoscopic appendectomy. Patient tolerated surgery well. Pain is controlled. He is tolerating diet. He is afebrile. He is having flatus. Denies any difficulty urinating. He has been up and ambulating. He is stable for discharge. Please refer to chart for any further details. Physician Bottom Liqu[employer] Attendant note has been reviewed by physician. Signing provider agrees with the documented findings, assessment, and plan of care. Patient Condition at Discharge: Stable Plan - Discharge Summary New Discharge Prescriptions: New HYDROcodone/APAP 5-325MG [[place] 5-325] 1 tab PO Q6HR PRN 3 Days #12 tab PRN Reason: Pain Continue lisinopriL [Zestril] 5 mg PO DAILY Semaglutide [Rybelsus] 14 mg PO DAILY Rosuvastatin Calcium [Crestor] 40 mg PO DAILY Empagliflozin [Jardiance] 25 mg PO DAILY Evolocumab [Repatha Sureclick] 140 mg SQ Q14D Discharge Medication List Empagliflozin [Jardiance] 25 mg PO DAILY 05/01/24 [History] Evolocumab [Repatha Sureclick] 140 mg SQ Q14D 05/01/24 [History] Rosuvastatin Calcium [Crestor] 40 mg PO DAILY 05/01/24 [History] Semaglutide [Rybelsus] 14 mg PO DAILY 05/01/24 [History] lisinopriL [Zestril] 5 mg PO DAILY 05/01/24 [History] HYDROcodone/APAP 5-325MG [[place] 5-325] 1 tab PO Q6HR PRN 3 Days #12 tab 05/03/24 [Rx] Follow up Appointment(s)/Referral(s): Aga Vega MD [Primary Care Provider] - 1-2 days Lonny Alvarez DO [Doctor of Osteopathic Medicine] - 05/29/24 9:15 am (Office will mail a packet to you to fill out and bring to your follow up appointment. Also bring with you I.D., Insurance Card, and list of current medications to your appointment. ) Patient Instructions/Handouts: Laparoscopic Appendectomy (GEN) Activity/Diet/Wound Care/Special Instructions: No driving while taking [place] No lifting over 10 pounds You may shower. No soaking or tub baths for 2 weeks Very light activity until you are reevaluated at your follow up appointment with your surgeon Discharge Disposition: HOME SELF-CARE
--- NOTE | 2024-05-04 04:40 | PN ---
PROGRESS NOTE DATE OF SERVICE: 05/03/2024 SUBJECTIVE: This is a 59-year-old gentleman admitted after appendectomy for acute appendicitis, also had elevated blood sugars also. No chest pain. No palpitation. Sugars are 225, 129 and 127 now. The patient checks blood sugar once a day at home. OBJECTIVE: VITAL SIGNS: Pulse 49, blood pressure 137/70, respirations 16. CHEST: Clear to auscultation. CARDIOVASCULAR: S1, S2. ABDOMEN: Soft, nontender. LABORATORY DATA: Reviewed. ASSESSMENT: 1. Acute appendicitis, status post appendectomy. 2. Diabetes mellitus, type 2. 3. Hyperlipidemia. RECOMMENDATIONS: This is a 59-year-old gentleman presented with multiple complex medical issues. At this time, the blood sugars are acceptable. I would recommend continue checking Accu-Cheks before meals and at bedtime at home and present the log to Dr. Vega and consider a temporary insulin dosage to control the blood sugar if it is extremely high because of the patient's history of difficulties with other medications. MMODL / IJN: [id number] /
== END 2024-05-03 12:07 | disposition home or self-care (01) ==
LOC: EC 18:24 → 1SOBS 23:44 → 6NMEDSUR 05-02 07:02
PROVIDERS: ADMIT Surgery; ATTEND Surgery
DX: K35.80 Unspecified acute appendicitis (principal); E11.65 Type 2 diabetes mellitus with hyperglycemia; E78.5 Hyperlipidemia, unspecified; Z79.84 Long term (current) use of oral hypoglycemic drugs; Z79.899 Other long term (current) drug therapy; Z88.0 Allergy status to penicillin
CPT/HCPCS: 96361; 96374; 96375; 99285; 36415; 88304; 80053 ×2; 82150; 83605; 83690; 85025 ×2; 81003; 83036; 74177; 44970; G0378 ×3; J2250; J0330; J1644; J1100; J2710; J2405; J0696 ×3; J2003; J3010; J3490; J1885 ×3; J2704; Q9967; J1836 ×3; J1596